=== PATIENT | male | born 1955 | race Caucasian/White ===

== ENCOUNTER 2018-04-15 11:26 | Inpatient (IN) ==
--- NOTE | 2018-04-15 08:37 | Discharge Summary ---
<Jose Hewitt - Last Filed: 04/15/18 13:09> Orders not resulted at time of discharge: Pending orders 04/15/18 07:49 US anesthesia pain block [US] Routine 04/15/18 08:37 XR hip complete RT [XR] Routine H/H [Hemoglobin and Hematocrit] [HEME] Routine Date of Encounter: 04/15/18 - Hospital Course Hospital course: Mr. Monte is a 62 year old male - Time Spent with Patient Total time spent providing and/or coordinating discharge services: - Discharge Medications Home Medications: Allopurinol [Zyloprim] 300 mg PO DAILY 04/15/18 [History] Apixaban [Eliquis] 5 mg PO DAILY 04/15/18 [History] Aspirin [Lo-Dose Aspirin EC] 81 mg PO DAILY 04/15/18 [History] Betamethasone Malu 0.1% Crm [Valisone 0.1%] 1 appl TP DAILY 04/15/18 [History] Carvedilol [Coreg] 25 mg PO DAILY 04/15/18 [History] Cider Vinegar [Apple Cider Vinegar] 500 mg PO DAILY 04/15/18 [History] Clotrimazole/Betameth Dip CRM [Lotrisone CRM] 1 appl TP BID 04/15/18 [History] Colchicine [Colcrys] 0.6 mg PO PRN PRN 04/15/18 [History] Fenofibrate 160 mg PO DAILY 04/15/18 [History] Gabapentin [Neurontin] 300 mg PO TID 04/15/18 [History] Hydrocortisone/Iodoquinol [Hydrocortisone-Iodoquinol Crm] 28.4 gm TP TID [History] Indomethacin [Indocin] 25 mg PO BID PRN 04/15/18 [History] Milk Thistle 175 mg PO DAILY 04/15/18 [History] [place]-3/Dha/Epa/Fish Oil [[place] 3 500 Softgel] 1 each PO DAILY 04/15/18 [History ] OxyCODONE/APAP 10/325 [Percocet 10/325 MG] 1 each PO Q6HR PRN 04/15/18 [History] Turmeric Root Extract [Turmeric] 500 mg PO DAILY 04/15/18 [History] Ubidecarenone [Coq10] 50 mg PO DAILY 04/15/18 [History] Zinc Acetate [Galzin] 50 mg PO DAILY 04/15/18 [History] cloNIDine HCl [Clonidine HCl] 0.1 mg PO DAILY 04/15/18 [History] diazePAM [Valium] 5 mg PO BID PRN 04/15/18 [History] Allergies/Adverse Reactions: 3 Allergy/AdvReac Type Severity Reaction Status Date / Time diltiazem [From Cardizem] Allergy EDEMA Verified 04/15/18 12:35 lisinopril Allergy Hives Verified 04/15/18 12:35 nifedipine [From Procardia] Allergy Dizziness Verified 04/13/18 15:32 simvastatin [From Zocor] Allergy MYALGIA Verified 04/15/18 12:35 amlodipine [From Norvasc] AdvReac Dizziness Verified 04/13/18 15:32 atorvastatin [From Lipitor] AdvReac MYALGIA Verified 04/15/18 12:35 hydrochlorothiazide AdvReac Dizziness Verified 04/15/18 12:35 [From Dyazide] losartan [From Cozaar] AdvReac Diarrhea Verified 04/15/18 12:35 Triamterene [From Dyazide] AdvReac Dizziness Verified 04/15/18 12:35 Primary care physician: Evan Kitchen MD - Patient Status Disposition: Home Health Service Condition: Good - Discharge Instructions Follow Up With: Evan Kitchen MD [Primary Care Provider] - Additional Instructions: Discharge Instructions: Total Hip Replacement Please call [facility] ([phone]), your Primary Care Physician, or report to the Emergency Room if you have any of the following symptoms: Nausea, vomiting, fever greater that 101.5, swelling, chest pain, shortness of breath, increased pain/redness/drainage/odor for your incision site, numbness/ tingling, or any other concerning symptoms. ACTIVITY:Weight-bearing as tolerated for 8 weeks with hip dislocation precautions that physical therapy taught you. You may progress as tolerated under the guidance of your physical therapist. You do not need to sleep with a pillow between your legs. You can also seep on the operative side or on your stomach. Incentive Spirometer 10 times an hour. MEDICATIONS: Upon discharge resume your home medications. Take all the medications as prescribed. Take a stool softener if taking narcotic pain medications. Stool softeners are only effective if you drink enough fluids. Drink 6-8 glass of water or fluids a day, unless this is not allowed for another health problem. Despite using stool softeners, if you haven't had a bowel movement in 3 days, please switch to a gentle laxative. Gentle laxatives are sold over the counter. You should have a bowel movement within 24 hours, if not call the office. You will be discharged from the hospital with a prescription for pain medication. You are encouraged to decrease the use of narcotic pain medication as tolerated. Should you require a refill, please call the office. [facility] prescribes narcotic pain medication for only 4-6 weeks after surgery. If you require pain medication beyond this time period, you may be referred to your Primary Care Physician or to the Pain Clinic for further evaluation. Plan ahead for refills on pain medication as many narcotics either need to be picked up at the office or mailed. It is best to call 48-72 hours in advance of needing a prescription refill so you don't run out of medication. To help control the post-operative pain, you may take NSAIDs (Aleve,Advil, Motrin, ibuprofen, naprosyn) or Tylenol as prescribed on the bottle in addition to the pain medication. ANTICOAGULATION (blood thinners): Continue your Aspirin, Lovenox or Coumadin as prescribed to help prevent a blood clot in the leg or in the lungs. As long as your incision remains dry and you tolerate the NSAIDs (Aleve, Advil, Motrin, Ibuprofen, Naprosyn), it is OK to use the NSAIDS while you are taking your anticoagulation medication. Should your incision start to drain, stop the NSAID and contact our office. Common symptoms of blood clot in the legs include: localized pain, swelling, calf tenderness, redness or discoloration of the skin. Blood clot in the lung symptoms include: shortness of breath, rapid pulse, sweating, and chest pain that worsens with deep breathing, coughing up blood, lightheadedness, feelings of anxiety. If you experience any of these symptoms notify your physician immediately, go to the emergency room, or if having trouble breathing, call 911. WOUND CARE: Leave the dressing on for 7 to 10days. You may change the dressing if it is saturated greater than 50%. Do not get the dressing wet at anytime. Wash your hands with antibacterial soap, rinse and dry prior to any wound care. If you have dominic the visiting nurse or rehab facility can remove the stapes 10-14 days after surgery and place steri-strips across the wound. Leave the steri-strips in place until they fall off on their own. You may let water from the shower run on top of the steri-strips. If you do not have a visiting nurse or rehab facility, you will need to return to the office at 10-14 days for the dominic to be removed. If you have itching or redness around the dressing call the office. FOLLOW-UP: Please follow up with your surgeon in the orthopedic clinic in 6 weeks from the day of surgery. If you have dominic that need to be removed, you will need to come back to the office in 10-14 days from the day of surgery. <Roseline Rivera - Last Filed: 04/16/18 16:58> - NOTES TO OUTPATIENT PROVIDER Notes to Outpatient Provider: Acute blood loss anemia - follow up outpatient Orders not resulted at time of discharge: Pending orders 04/15/18 07:49 US anesthesia pain block [US] Routine 04/15/18 08:37 XR hip complete RT [XR] Routine H/H [Hemoglobin and Hematocrit] [HEME] Routine Date of Encounter: 04/16/18 Time of Encounter: 16:50 - Discharge Diagnosis (1) Status post total hip replacement, right Priority: Primary Status: Acute Comments: Opsite dressing, leave intact until first post-operative visit. If dressing becomes >50% saturated, contact office, remove dressing and place appropriate dressing in its place. Do not allow for dressing to get wet. Zipline in place, plan to remove at post-operative day #14-16. Total Joint Precautions x 6 weeks Apply cold therapy wrap 3-6x/day for 20 minutes at a time. Encourage ambulation throughout the day Use Incentive spirometer 10x/hour. Elevate affected extremity above heart as tolerated. Brace: Wear hip abductor brace at night x 6 weeks.~ (2) Arthritis of right hip Priority: Primary Status: Acute (3) Anticoagulated by anticoagulation treatment Priority: Secondary Status: Chronic Comments: Resume Eliquis (4) CAD (coronary artery disease) Priority: Secondary Status: Chronic Qualifiers: Coronary Disease-Associated Artery/Lesion type: [place] artery [place] vs. transplanted heart: [place] heart Associated angina: without angina Qualified Code(s): I25.10 - Atherosclerotic heart disease of [place] coronary artery without angina pectoris (5) History of coronary artery bypass graft Priority: Secondary Status: Chronic (6) HLD (hyperlipidemia) Priority: Secondary Status: Chronic Qualifiers: Hyperlipidemia type: mixed hyperlipidemia Qualified Code(s): E78.2 - Mixed hyperlipidemia (7) LADI (obstructive sleep apnea) Priority: Secondary Status: Chronic (8) HTN (hypertension) Priority: Secondary Status: Chronic Qualifiers: Hypertension type: essential hypertension Qualified Code(s): I10 - Essential (primary) hypertension (9) Acute blood loss anemia Priority: Secondary Status: Acute Comments: Stable, asympto - follow up outpatient Abnormal Labs, Last 24 hours 04/16/18 04/16/18 00:35 00:35 Hgb 8.5 L Hct 25.2 L Glucose 148 H (10) Chronic pain Priority: Secondary Status: Chronic Comments: Patient to continue Percocet 10//325mg Q 6 hours - no RX given Lidopatch added. Qualifiers: Chronic pain type: other chronic pain Qualified Code(s): G89.29 - Other chronic pain - Hospital Course Hospital course: Mr. Monte is a 62 year old male status post Right THR- Patient had uneventful postoperative course. Stable for discharge. Patient seen at bedside, without complaints. A&O x 3 Afebrile, vital signs stable. Chronic HTN - elevated, asympto. Vital Signs Temp Pulse Resp BP Pulse Ox 04/16/18 11:20 97.4 F L 69 16 158/77 100 04/16/18 07:00 97.7 F 74 18 182/91 96 04/16/18 03:03 97.9 F 73 19 160/75 97 04/16/18 00:39 97.9 F 62 17 167/80 99 04/15/18 19:31 98.1 F 64 18 180/82 98 04/15/18 18:21 97.9 F 66 16 127/78 98 Intake and Output 04/16/18 04/16/18 04/16/18 07:59 15:59 23:59 Intake Total 1000 / 1000 Output Total 1700 / 1700 Balance -700 / -700 Intake: Oral 1000 / 1000 Output: Urine 1700 / 1700 Other: Weight 94.9 kg Patient Weight 04/16/18 23:59 Weight 94.9 kg Labs reviewed. H/H - stable, asymptomatic - follow up H/H in AM with Abnormal lab results Hgb 8.5 g/dL (12.9-16.9) L 04/16/18 00:35 Hct 25.2 % (37.5-50.1) L 04/16/18 00:35 Glucose 148 mg/dL (70-105) H 04/16/18 00:35 Pain control: adequate Continue chronic pain. Participating in PT. All questions and concerns addressed. Educated on use of incentive spirometer. Encouraged ambulation and proper hydration. Patient educated on post-operative restrictions and post-operative care. Assessment and plan: Continue with postoperative care Discharge plan: Home with , discharge today. - Time Spent with Patient Total time spent providing and/or coordinating discharge services: Date of admission: 04/15 Primary care physician: Evan Kitchen MD Discharging clinician: Roseline Rivera Anticipated date of discharge: 04/16/18 - Patient Status Functional capacity at discharge: uses cane/walker Overall status at discharge: patient is progressing back to baseline
--- NOTE | 2018-04-15 10:14 | Anesthesia Evaluation PreOp ---
Date of Encounter: 04/15/18 Time of Encounter: 13:11 - Past History Planned Operation: RIGHT VANIA - ROBOTIC Cardiac History: HTN, Hyperlipidemia, Arrhythmia (PAF, LAST CARDIOVERSION 2016), Cardiac Surgery (CABG 2007), Cardiac Stent (?? 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 History: Denies Any Significant HX Other Medical History: Other (HYPERURICEMIA, G[place], [place], JOSE ROBERTO HEARING AIDS) Anesthesia History: No Prior Anesthetic Complications, Past Anesthesia (SEVERAL) Medications and Allergies Allopurinol [Zyloprim] 300 mg PO DAILY 04/15/18 [History] Apixaban [Eliquis] 5 mg PO DAILY 04/15/18 [History] Aspirin [Lo-Dose Aspirin EC] 81 mg PO DAILY 04/15/18 [History] Betamethasone [place] 0.1% Crm [Valisone 0.1%] 1 appl TP DAILY 04/15/18 [History] Carvedilol [Coreg] 25 mg PO DAILY 04/15/18 [History] Cider Vinegar [Apple Cider Vinegar] 500 mg PO DAILY 04/15/18 [History] Clotrimazole/Betameth Dip CRM [Lotrisone CRM] 1 appl TP BID 04/15/18 [History] Colchicine [Colcrys] 0.6 mg PO PRN PRN 04/15/18 [History] Fenofibrate 160 mg PO DAILY 04/15/18 [History] Gabapentin [Neurontin] 300 mg PO TID 04/15/18 [History] Hydrocortisone/Iodoquinol [Hydrocortisone-Iodoquinol Crm] 28.4 gm TP TID [History] Indomethacin [Indocin] 25 mg PO BID PRN 04/15/18 [History] Milk Thistle 175 mg PO DAILY 04/15/18 [History] [place]-3/Dha/Epa/Fish Oil [[place] 3 500 Softgel] 1 each PO DAILY 04/15/18 [History ] OxyCODONE/APAP 10/325 [Percocet 10/325 MG] 1 each PO Q6HR PRN 04/15/18 [History] Turmeric Root Extract [Turmeric] 500 mg PO DAILY 04/15/18 [History] Ubidecarenone [Coq10] 50 mg PO DAILY 04/15/18 [History] Zinc Acetate [Galzin] 50 mg PO DAILY 04/15/18 [History] cloNIDine HCl [Clonidine HCl] 0.1 mg PO DAILY 04/15/18 [History] diazePAM [Valium] 5 mg PO BID PRN 04/15/18 [History] 3 Allergy/AdvReac Type Severity Reaction Status Date / Time diltiazem [From Cardizem] Allergy EDEMA Verified 04/15/18 12:35 lisinopril Allergy Hives Verified 04/15/18 12:35 nifedipine [From Procardia] Allergy Dizziness Verified 04/13/18 15:32 simvastatin [From Zocor] Allergy MYALGIA Verified 04/15/18 12:35 amlodipine [From Norvasc] AdvReac Dizziness Verified 04/13/18 15:32 atorvastatin [From Lipitor] AdvReac MYALGIA Verified 04/15/18 12:35 hydrochlorothiazide AdvReac Dizziness Verified 04/15/18 12:35 [From Dyazide] losartan [From Cozaar] AdvReac Diarrhea Verified 04/15/18 12:35 Triamterene [From Dyazide] AdvReac Dizziness Verified 04/15/18 12:35 - Meds/Allergy Pre-op Review Medications Reviewed: Yes Allergies Reviewed: Yes Beta Blockers on Current Med List: Yes If Beta Blockers taken, Date/Time (Last Dose taken): 429 Anesthesia Results - Labs Laboratory Last Values WBC 5.6 K/mcL (4.3-11.1) 04/13/18 15:45 RBC 3.93 M/mcL (4.19-5.50) L 04/13/18 15:45 Hgb 11.3 g/dL (12.9-16.9) L 04/13/18 15:45 Hct 34.5 % (37.5-50.1) L 04/13/18 15:45 MCV 87.8 fL (83.0-100.0) 04/13/18 15:45 MCH 28.8 pg (28.0-33.3) 04/13/18 15:45 MCHC 32.8 g/dL (31.6-35.5) 04/13/18 15:45 RDW 14.6 % (11.5-14.5) H 04/13/18 15:45 Plt Count 134 K/mcL (140-400) L 04/13/18 15:45 MPV 11.7 fL (9.4-12.4) 04/13/18 15:45 Immature Gran % 0.5 % (0-4) 04/13/18 15:45 Seg Neutrophils % 60.3 % 04/13/18 15:45 Lymphocytes % 25.3 % 04/13/18 15:45 Monocytes % 9.5 % 04/13/18 15:45 Eosinophils % 3.9 % 04/13/18 15:45 Basophils % 0.5 % 04/13/18 15:45 Neutrophils # 3.4 K/mcL (1.6-8.9) 04/13/18 15:45 Lymphocytes # 1.4 K/mcL (0.6-4.6) 04/13/18 15:45 Monocytes # 0.5 K/mcL (0.0-1.3) 04/13/18 15:45 Eosinophils # 0.2 K/mcL (0.0-0.6) 04/13/18 15:45 Basophils # 0.0 K/mcL (0.0-0.2) 04/13/18 15:45 PT 13.0 Seconds (9.4-12.1) H 04/13/18 15:45 INR 1.2 04/13/18 15:45 APTT 33.8 Seconds (26.0-36.0) 04/13/18 15:45 Sodium 139 mEq/L (136-145) 04/13/18 15:45 Potassium 3.7 mEq/L (3.5-5.1) 04/13/18 15:45 Chloride 105 mEq/L (98-107) 04/13/18 15:45 Carbon Dioxide 27 mEq/L (23-29) 04/13/18 15:45 BUN 19 mg/dL (8-23) 04/13/18 15:45 Creatinine 1.15 mg/dL (0.70-1.30) 04/13/18 15:45 Est GFR ( Amer) > 60 (> 60) 04/13/18 15:45 Est GFR (Non-Af Amer) > 60 (> 60) 04/13/18 15:45 BUN/Creatinine Ratio 17 (6-26) 04/13/18 15:45 - Imaging EKG: report reviewed (SINUS BRADYCARDIA MODERATE VOLTAGE CRITERIA FOR LVH) Anesthesia Exam O2 Sat Height 1.83 m Weight 94.801 kg BMI 28 Vital Signs Temp Pulse Resp BP Pulse Ox 97.7 F 54 18 178/77 96 04/15/18 12:06 04/15/18 12:06 04/15/18 12:06 04/15/18 12:06 04/15/18 12:06 NPO (# of Hours): 8 - HEENT Mallampati: I (BEARDED) Teeth: Normal Oral Opening: Greater than 3 - Cardiac Rhythm: Regular - Pulmonary Breath Sounds: bilateral Clear Respiratory Effort: Symmetrical Anesthesia Assess/Plan ASA Score: 3 Modified [place] Scale for Level of Consciousness: Cooperative, oriented, and tranquil Anesthetic Plan: General Monitoring Plan: Standard Monitors Recovery Plan: PACU Anes Supervising Prov Stmt: [employer] LIST NOT UPDATED THIS VISIT PATIENT'S CHART AND CURRENT MEDICATIONS REVIEWED CURRENT MEDICATIONS: Oxycodone-Acetaminophen 10-325 MG Tablet, Si tablet as needed Orally every 6 hrs Taking Gabapentin 300 MG Capsule, Si capsule Orally three times a day Eliquis 5 mg Tablet, Si ta blet Orally daily STOPPED 1 WEEK Colchicine 0.6 MG Tablet, Si tablet Orally Once a day Carvedilol 25 MG Tablet, Si tablet Orally daily Allopurinol 300 MG Tablet, Si tablet Orally Once a day Clonidine HCl 0.1 MG Tablet, Si tablet at bedtime Orally Once a day Fenofibrate 160 MG Tablet, Si tablet with food Orally Once a day Aspir-81 81 MG Tablet Delayed Release, Si tablet Orally Once a day Indomethacin 25 MG Capsule, Si capsule with food or milk Orally Twice a day STOPPED 1 WEEK Diazepam 5 MG Tablet, Si tablet as needed Orally Twice a day Patient informed and consented. Risks, benefits, and alternatives discussed. Patient wishes to proceed.
[2018-04-15] MEDS ORDERED: *HR* OxyCODONE Immed Rel 5 MG TABLET PO PRN (11:54)
[2018-04-15] MEDS ORDERED: *HR* Labetalol 20 MG/4 ML SYRINGE IVP PRN (11:54)
[2018-04-15] MEDS ORDERED: *HR* Promethazine 25 MG/ML VIAL IVP PRN (11:54)
--- NOTE | 2018-04-15 12:02 | History & Physical Report ---
Date of Encounter: 04/15/18 Time of Encounter: 12:02 24 Hour HP Update - Instructions Instructions: If the History and Physical is less than 30 days old and was completed prior to A.M. admission and or procedure and has NOT been updated on calendar day of procedure please complete this update prior to performing procedure. - Update Patient reports changes in Medical Condition: No Changes in examination, assessment, or condition: No Changes in Medication: No Preop tests/diagnostics Reviewed: Yes Surgery Remains Indicated: Yes Consent for Planned Operative Procedure(s) Verified: Yes - Pre-Operative Checklist Preoperative Checklist Indicated: No Prophylactic Antibiotic Ordered: Yes Is VTE Prophylaxis Indicated?: Yes
[2018-04-15] MEDS ORDERED: CeFAZolin Syr 2,000MG/20 ML 2,000 MG/20 ML SYRINGE IVPB ONE (12:04)
[2018-04-15] MEDS ORDERED: Ringers Solution, Lactated 1,000 ML IVC SCH ×2 (12:15→15:50)
[2018-04-15] MEDS ORDERED: *HR* Midazolam HCl 2 MG/2 ML VIAL ONE (12:17)
[2018-04-15] MEDS ORDERED: *HR* FentaNYL (PF) 100 MCG/2 ML VIAL ONE (12:17)
[2018-04-15] MEDS ORDERED: *HR* Propofol 200 MG/20 ML VIAL IVP ONE (12:17)
[2018-04-15] MEDS ORDERED: Ethanol\\Acetic Acid\\Na Ace\\Ben 1,000 ML IRRIG.SOLN IR ONE (12:35)
[2018-04-15] MEDS ORDERED: KETAMINE HCL 50 MG/ML SYRINGE IV ONE (12:36)
[2018-04-15] MEDS ORDERED: *HR* HYDROmorphone 2 MG/ML SYRINGE ONE (12:37)
[2018-04-15] MEDS ORDERED: Lidocaine -MPF 4% 5 ML AMPUL ONE (13:10)
[2018-04-15] MEDS ORDERED: *HR* Succinylcholine 200 MG/10 ML VIAL IVP ONE (13:12)
[2018-04-15] MEDS ORDERED: Lidocaine -MPF 2% 2 ML VIAL ONE (13:21)
[2018-04-15] MEDS ORDERED: Acetaminophen IV 1,000 MG/100 ML INFUS..BTL ONE (13:26)
[2018-04-15] MEDS ORDERED: Dexamethasone 4 MG/ML VIAL ONE (13:33)
[2018-04-15] MEDS ORDERED: Ondansetron 4 MG/2 ML VIAL ONE (13:33)
[2018-04-15] MEDS ORDERED: *HR* Magnesium Sulfate 1 GM/2 ML VIAL ONE (13:37)
--- NOTE | 2018-04-15 14:21 | Orthopedic Operative Note ---
Date of procedure: 04/15/18 Pre-op diagnosis: Right hip arthritis Post-op diagnosis: same Procedure: Procedure: Right Total Hip Replacment robotic-assisted Estimated blood loss: 200 cc Hardware: Metal and polyethylene replacement. Milagros DM Cup: 58 cup Femoral size 8 stem Head: 8 head with Tiara Procedural Notes: Grade 4 arthritic changes femoral head acetabular socket, procedure performed with robotic assistance. Operative leg 2 mm shorter than nonoperative as measured by CT scan Operative procedure: The patient was brought to the operating room and placed on the operating room table. After general anesthesia was administered the patient was placed in the lateral decubitus position with the operative leg up. All pressure points were padded appropriately and the head was stabilized in the neutral position. The operative extremity was prepped and draped in the sterile surgical fashion patient received IV antibiotic prior to skin incision. 3 Steinmann pins were placed in the iliac crest 3 cm proximal to the anterior superior iliac spine this was for the robotic-assisted sensor. This was done through a small 2 cm incision. A standard posterior approach is made to the operative hip, the incision was made through the skin and subcutaneous tissue hemostasis was obtained with Bovie cautery. Using careful sharp dissection the fascia was identified and incised exposing the external rotators. The greater trochanter was marked, and length was measured at this time utilizing robotic assistance. The external rotators were released off the greater trochanter and tagged with # 2 FiberWire suture. The capsule was T'd open and the hip was brought into internal rotation. Patient noted to have grade 4 arthritic changes femoral head. The femoral neck cut was made at the appropriate level roughly 15 mm proximal to the lesser trochanter aced on preoperative templating. An anterior capsulotomy was performed for the anterior retractor. Soft tissues removed from the acetabulum. Patient noted to have grade 4 arthritic changes acetabulum. The acetabulum reference point was confirmed. The acetabulum was then mapped with robotic assistance. Based on the preoperative plan the acetabulum was reamed in one step with a 57 reamer. The 58 acetabulum was impacted with robotic assistance and 43 degrees of abduction and 19 degrees of anteversion. The hip was brought back in to internal rotation and prepared with the press box custodian followed by the canal finder followed by the reaming process to a size 7/ 8 broaching process in 20 degrees anteversion. It was broached up to the appropriate size 8 Trial reduction revealed leg lengths close to normal. The femoral implant was impacted in place in 20 degrees of anteversion. Trial reduction found the hip to be stable with 8 head and Tiara. The trials were removed and the real implants were impacted in place. The hip was reduced, patient had robotic confirmed leg length of 1 mm longer than the contralateral side. The hip had excellent stability with forward flexion to 90 degrees adduction of 30 degrees and internal rotation of 60 degrees. The hip had no shuck. The hip sat with an antibacterial solution. It was irrigated out with 2 L of pulse irrigation. The Steinmann pins were removed. The hip was closed by the PA. The deep tissue was irrigated and closed deep with #1 PDS suture superficially with 0 PDS suture and skin was closed with Dermabond and zip tie. The patient was placed in a sterile dressing and abduction pillow. The patient was extubated and transferred to the recovery room in stable condition. Anesthesia: GETA Surgeon: Jose Hewitt Was there an creative assistant present: Yes Plastic Eye Technician: Roseline Rivera Estimated blood loss (cc): 200 Condition: stable Disposition: PACU
[2018-04-15] MEDS: *HR* HYDROmorphone (PF) 1 MG/ML SYRINGE IVP PRN ×2 (15:02→15:07)
[2018-04-15 15:15] LABS: Hematocrit 29.3 % (37.5-50.1); Hemoglobin 9.8 g/dL (12.9-16.9)
[2018-04-15] MEDS ORDERED: Sennosides 8.6 MG TABLET PO PRN (15:50)
[2018-04-15] MEDS ORDERED: diazePAM 5 MG TABLET PO PRN (15:50)
[2018-04-15] MEDS ORDERED: [UNRECOGNIZED DRUG - OTHER] TP SCH (15:50)
[2018-04-15] MEDS ORDERED: Naloxone 0.4 MG/ML INJ IVP PRN (15:50)
[2018-04-15] MEDS ORDERED: traMADol 50 MG TABLET PO PRN (15:50)
[2018-04-15] MEDS ORDERED: MOM Conc 10 ML UD.LIQ PO PRN (15:50)
[2018-04-15] MEDS ORDERED: COLCHICINE 0.6 MG PO PRN (15:50)
[2018-04-15] MEDS ORDERED: HYDROCORTISONE TP SCH (15:50)
[2018-04-15] MEDS ORDERED: Temazepam 15 MG CAPSULE PO PRN (15:50)
[2018-04-15] MEDS ORDERED: IODOQUINOL TP SCH (15:50)
[2018-04-15] MEDS ORDERED: Ondansetron 4 MG/2 ML VIAL IVP PRN (15:50)
[2018-04-15] MEDS: *HR* OxyCODONE Immed Rel 5 MG TABLET PO PRN (17:09)
[2018-04-15] MEDS: Ascorbic Acid 500 MG TABLET PO SCH (17:09)
[2018-04-15] MEDS: Gabapentin 300 MG CAPSULE PO SCH ×2 (17:10→20:24)
[2018-04-15] MEDS ORDERED: *HR* Enoxaparin 30 MG/0.3 ML SYRINGE SQ SCH (18:00)
[2018-04-15] MEDS: *HR* OxyCODONE/APAP 5/325 TABLET PO PRN (20:23)
[2018-04-15] MEDS ORDERED: Clotrimazole/Betameth Dip CRM 45 APPL/45 GM TUBE TP SCH ×2 (21:00)
[2018-04-16] MEDS: *HR* OxyCODONE Immed Rel 5 MG TABLET PO PRN ×2 (00:40→13:02)
[2018-04-16 00:54] LABS: Hematocrit 25.2 % (37.5-50.1); Hemoglobin 8.5 g/dL (12.9-16.9)
[2018-04-16 01:13] LABS: BUN/Creatinine Ratio 17 (6-26); Blood Urea Nitrogen 19 mg/dL (8-23); Carbon Dioxide 25 mEq/L (23-29); Chloride 102 mEq/L (98-107); Glucose 148 mg/dL (70-105); Osmolality,Calculated 287 (280-300); Potassium 3.5 mEq/L (3.5-5.1); Sodium 136 mEq/L (136-145); eGFR For Non-African Americans > 60 (> 60)
[2018-04-16] MEDS: *HR* OxyCODONE/APAP 5/325 TABLET PO PRN (05:36)
[2018-04-16] MEDS: Ascorbic Acid 500 MG TABLET PO SCH (07:49)
[2018-04-16] MEDS: Gabapentin 300 MG CAPSULE PO SCH (07:49)
--- NOTE | 2018-04-16 07:56 | Orthopedics Progress Note ---
Date of Encounter: 04/16/18 Time of Encounter: 07:55 - Assessment and Plan (1) Acute blood loss anemia Current Visit: Yes Status: Acute Subjective Interval history: Patient was seen this morning doing well without complaints. Afebrile vital signs stable. Operative extremity: Neurovascularly intact Dressing clean dry and intact Calves nontender Assessment and plan: Continue with postoperative care Hemoglobin 8.5 discharged today Objective Vital signs: Vital Signs Temp Pulse Resp BP Pulse Ox 04/16/18 07:00 97.7 F 74 18 182/91 96 04/16/18 03:03 97.9 F 73 19 160/75 97 04/16/18 00:39 97.9 F 62 17 167/80 99 04/15/18 19:31 98.1 F 64 18 180/82 98 04/15/18 18:21 97.9 F 66 16 127/78 98 04/15/18 16:20 97.7 F 60 16 156/72 95 04/15/18 15:54 97.9 F 62 16 178/78 98 04/15/18 15:24 98.0 F 64 18 151/84 99 04/15/18 15:14 98.1 F 69 18 155/86 95 04/15/18 15:04 66 18 179/86 96 04/15/18 14:54 64 20 159/78 95 04/15/18 14:44 98.0 F 64 16 159/85 100 04/15/18 12:06 97.7 F 54 18 178/77 96 Intake and Output 04/15/18 04/15/18 04/16/18 15:59 23:59 07:59 Intake Total 820 / 820 1000 / 1000 Output Total 200 / 200 175 / 175 1700 / 1700 Balance -200 / -200 645 / 645 -700 / -700 Intake: IV Fluids 100 / 100 Ancef 2,000 MG In 0.9 % Sodium 100 / 100 Chloride 100 ML @ 200 mls/hr IVPB Q8H [facility] Rx#:[id number] Oral 720 / 720 1000 / 1000 Output: Urine 175 / 175 1700 / 1700 Estimated Blood Loss 200 / 200 Other: Weight 94.801 kg 94.9 kg Patient Weight 04/16/18 23:59 Weight 94.9 kg - Labs CBC & BMP: 04/16/18 00:35 04/16/18 00:35 Labs: Abnormal lab results Hgb 8.5 g/dL (12.9-16.9) L 04/16/18 00:35 Hct 25.2 % (37.5-50.1) L 04/16/18 00:35 Glucose 148 mg/dL (70-105) H 04/16/18 00:35 - VTE Documentation of Mechanical Device: Venous foot pump, device Consult Discharge Plan - Plan Referrals: Evan Kitchen MD [Primary Care Provider] - Prescriptions: OxyCODONE Immed Rel [Roxicodone 5 MG] 5 mg PO Q6H PRN 7 Days #28 tablet PRN Reason: Severe pain 7-10
[2018-04-16] MEDS ORDERED: Multivit/Ca/Min/Fe/FA 1 TAB TABLET PO SCH (09:00)
[2018-04-16] MEDS ORDERED: NON-FORMULARY MEDICATION 1 EACH EACH (Omega-3/Dha/Epa/Fish Oil [Omega 3 500 Softgel] 1 EAC PO SCH (09:00)
[2018-04-16] MEDS ORDERED: Apixaban 5 MG TABLET PO SCH (09:00)
[2018-04-16] MEDS ORDERED: MILK THISTLE 175 MG PO SCH (09:00)
[2018-04-16] MEDS ORDERED: NON-FORMULARY MEDICATION 1 EACH EACH (Ubidecarenone [Coq10] 50 MG) PO SCH (09:00)
[2018-04-16] MEDS ORDERED: ZINC ACETATE 50 MG PO SCH (09:00)
[2018-04-16] MEDS ORDERED: NON-FORMULARY MEDICATION 1 EACH EACH (Turmeric Root Extract [Turmeric] 500 MG) PO SCH (09:00)
[2018-04-16] MEDS ORDERED: CIDER VINEGAR 500 MG PO SCH (09:00)
[2018-04-16] MEDS ORDERED: Fenofibrate 54 MG TABLET PO SCH (09:00)
[2018-04-16] MEDS ORDERED: Aspirin Enteric Coated 81 MG Tablet PO SCH (09:00)
[2018-04-16] MEDS ORDERED: cloNIDine HCl 0.1 MG TABLET PO SCH (09:00)
[2018-04-16 11:21] VITALS: BP 158/77
--- NOTE | 2018-04-16 17:06 | Physician Discharge Referral ---
Home Health/Hosp Referral Info Transfer to: Home Health Provider in Charge Post Discharge: PCP - Diagnosis (1) Status post total hip replacement, right Priority: Primary Status: Acute (2) Arthritis of right hip Priority: Primary Status: Acute (3) Anticoagulated by anticoagulation treatment Status: Chronic (4) CAD (coronary artery disease) Status: Chronic (5) History of coronary artery bypass graft Status: Chronic (6) HLD (hyperlipidemia) Status: Chronic (7) LADI (obstructive sleep apnea) Status: Chronic (8) HTN (hypertension) Status: Chronic (9) Acute blood loss anemia Priority: Primary Status: Acute (10) Chronic pain Priority: Primary Status: Chronic - Respiratory Orders None Smoking Cessation: Smoking cessation has been advised. For more information, call the [facility] Tobacco Quit Line at 2-794-OFEO-NOW. - Diet/Nutrition Diet/Nutrition Orders: Regular - Activity Activity Orders: Up ad va, Ambulate, Walker - Services Needed Following services are medically necessary services: Nursing, Home Health Aide, Physical Therapy, Occupational Therapy Home Care Orders: Opsite dressing, leave intact until first post-operative visit. If dressing becomes >50% saturated, contact office, remove dressing and place appropriate dressing in its place. Do not allow for dressing to get wet. Zipline/Churdan in place, plan to remove at post-operative day #14-16. Total Joint Precautions x 6 weeks Apply cold therapy wrap 3-6x/day for 20 minutes at a time. Encourage ambulation throughout the day Use Incentive spirometer 10x/hour. Elevate affected extremity above heart as tolerated. Brace: Wear knee immobilizer at night until first post-operative appt Repeat H/H in AM - fax results to [facility]. - Transfer Medications Home Medications: Allopurinol [Zyloprim] 300 mg PO DAILY 04/15/18 [History] Apixaban [Eliquis] 5 mg PO DAILY 04/15/18 [History] Aspirin [Lo-Dose Aspirin EC] 81 mg PO DAILY 04/15/18 [History] Betamethasone Malu 0.1% Crm [Valisone 0.1%] 1 appl TP DAILY 04/15/18 [History] Carvedilol [Coreg] 25 mg PO DAILY 04/15/18 [History] Cider Vinegar [Apple Cider Vinegar] 500 mg PO DAILY 04/15/18 [History] Clotrimazole/Betameth Dip CRM [Lotrisone CRM] 1 appl TP BID 04/15/18 [History] Colchicine [Colcrys] 0.6 mg PO PRN PRN 04/15/18 [History] Fenofibrate 160 mg PO DAILY 04/15/18 [History] Gabapentin [Neurontin] 300 mg PO TID 04/15/18 [History] Hydrocortisone/Iodoquinol [Hydrocortisone-Iodoquinol Crm] 28.4 gm TP TID [History] Indomethacin [Indocin] 25 mg PO BID PRN 04/15/18 [History] Milk Thistle 175 mg PO DAILY 04/15/18 [History] Palmetto-3/Dha/Epa/Fish Oil [Palmetto 3 500 Softgel] 1 each PO DAILY 04/15/18 [History ] OxyCODONE/APAP 10325 [Percocet 10/325 MG] 1 each PO Q6HR PRN 04/15/18 [History] Turmeric Root Extract [Turmeric] 500 mg PO DAILY 04/15/18 [History] Ubidecarenone [Coq10] 50 mg PO DAILY 04/15/18 [History] Zinc Acetate [Galzin] 50 mg PO DAILY 04/15/18 [History] cloNIDine HCl [Clonidine HCl] 0.1 mg PO DAILY 04/15/18 [History] diazePAM [Valium] 5 mg PO BID PRN 04/15/18 [History] Allergies/Adverse Reactions: 3 Allergy/AdvReac Type Severity Reaction Status Date / Time diltiazem [From Cardizem] Allergy EDEMA Verified 04/15/18 12:35 lisinopril Allergy Hives Verified 04/15/18 12:35 nifedipine [From Procardia] Allergy Dizziness Verified 04/13/18 15:32 simvastatin [From Zocor] Allergy MYALGIA Verified 04/15/18 12:35 amlodipine [From Norvasc] AdvReac Dizziness Verified 04/13/18 15:32 atorvastatin [From Lipitor] AdvReac MYALGIA Verified 04/15/18 12:35 hydrochlorothiazide AdvReac Dizziness Verified 04/15/18 12:35 [From Dyazide] losartan [From Cozaar] AdvReac Diarrhea Verified 04/15/18 12:35 Triamterene [From Dyazide] AdvReac Dizziness Verified 04/15/18 12:35 Certification: Further, I certify that my clinical findings support that this patient is homebound (i.e. absences from home require considerable and taxing effort and are for medical reasons or jain services or infrequently or short duration when for other reasons) because: Homebound Reason: Post-surgery restriction and or conditions limit ability to leave home Attestation: My signature below is to certify that this patient is under my care and that I, or nurse practitioner, or a physician's assistant track coach working with me, has a face-to -face encounter with this patient.
== END 2018-04-16 15:45 | disposition home health service (06) | DRG 470 ==
LOC: SAMDAY 11:26 → 3NENU 15:40
PROVIDERS: ADMIT Orthopaedic Surgery; ATTEND Orthopaedic Surgery